=== PATIENT | male | born 1980 | race Caucasian/White ===

== ENCOUNTER 2020-05-28 19:16 | Emergency (ER) | payer BC ==
--- NOTE | 2020-05-28 19:34 | EDM.PDOC ---
ED HPI GENERAL MEDICAL PROBLEM - General Chief Complaint: Chest Pain Stated Complaint: CHEST/NECK PAIN Time Seen by Provider: 05/28/20 19:24 - History of Present Illness INITIAL COMMENTS - FREE TEXT/NARRATIVE: 39-year-old male presents the emergency room with chest pain. Patient had an episode of chest pain on Friday that was more severe than today it seemed to radiate up the right side of his anterior chest and into his neck and up the side of his neck. Patient has had problems like this in the past but usually on the left side. Today's episode was milder but he thought it needed to be checked out. Patient several years ago had similar episodes and was worked up in [place] for this however he never had a follow-up he had a stress test done at that point it was nonconclusive he said they found a condition that would only be problematic if he was an elderly black female. During that evaluation they mention something about possible sarcoidosis. The patient does smoke nearly half a pack of cigarettes a day. Family history noncontributory Chest Pain Score (Numeric/FACES): 5 - Related Data Allergies Allergy/AdvReac Type Severity Reaction Status Date / Time No Known Allergies Allergy Verified 05/28/20 19:26 Home Meds: Home Meds . [No Known Home Meds] 05/28/20 [History] ED ROS GENERAL - Review of Systems Review Of Systems: See Below Constitutional: Reports: No Symptoms HEENT: Reports: No Symptoms Respiratory: Reports: No Symptoms, Other (Unusual chest pain sure sounds muscle skeletal). Denies: Shortness of Breath Cardiovascular: Reports: No Symptoms GI/Abdominal: Reports: No Symptoms : Reports: No Symptoms Musculoskeletal: Reports: Neck Pain Neurological: Reports: No Symptoms Psychiatric: Reports: No Symptoms, Other (History of anxiety and depression but this does not seem to be bothering him at this point) ED EXAM, GENERAL - Physical Exam Exam: See Below Exam Limited By: No Limitations General Appearance: Alert, No Apparent Distress Head: Atraumatic, Normocephalic Neck: Other (Exam is for the most part unremarkable except for some tenderness that is mild along the right sternocleidomastoid the patient does state that this is where his pain usually is) Respiratory/Chest: No Respiratory Distress, Lungs Clear, Normal Breath Sounds Cardiovascular: Regular Rate, Rhythm, No Edema, No Murmur GI/Abdominal: Normal Bowel Sounds, Soft, Non-Tender EKG INTERPRETATION EKG Date: 05/28/20 Rhythm: NSR [place]: Normal P-Wave: Present QRS: Normal Comparison: NA - No Prior EKG Course - Vital Signs Last Recorded V/S: Last Vital Signs Temp 36.2 C 05/28/20 19:23 Pulse 69 05/28/20 20:15 Resp 18 05/28/20 20:15 BP 108/72 05/28/20 20:15 Pulse Ox 96 05/28/20 20:15 - Orders/Labs/Meds Orders: Active Orders 24 hr Category Date Time Status EKG 12 Lead [EKG Documentation Completion] [RC] STAT Care 05/28/20 19:48 Active Chest 1V Frontal [CR] Stat Exams 05/28/20 19:39 Taken Labs: Laboratory Tests 05/28/20 05/28/20 05/28/20 Range/Units 19:30 19:30 19:30 WBC 6.39 (4.23-9.07) K/mm3 RBC 4.76 (4.63-6.08) M/mm3 Hgb 14.8 (13.7-17.5) gm/dl Hct 43.2 (40.1-51.0) % MCV 90.8 (79.0-92.2) fl MCH 31.1 (25.7-32.2) pg MCHC 34.3 (32.2-35.5) g/dl RDW Std Deviation 39.8 (35.1-43.9) fL Plt Count 244 (163-337) K/mm3 MPV 10.2 (9.4-12.3) fl Neut % (Auto) 65.1 (34.0-67.9) % Lymph % (Auto) 23.0 (21.8-53.1) % [place] % (Auto) 10.5 (5.3-12.2) % Eos % (Auto) 0.9 (0.8-7.0) Baso % (Auto) 0.3 (0.1-1.2) % Neut # (Auto) 4.16 (1.78-5.38) K/mm3 Lymph # (Auto) 1.47 (1.32-3.57) K/mm3 [place] # (Auto) 0.67 (0.30-0.82) K/mm3 Eos # (Auto) 0.06 (0.04-0.54) K/mm3 Baso # (Auto) 0.02 (0.01-0.08) K/mm3 D-Dimer, Quantitative < 0.19 L (0.19-0.50) mg/L Sodium 141 (136-145) mEq/L Potassium 3.6 (3.5-5.1) mEq/L Chloride 104 (98-107) mEq/L Carbon Dioxide 29 (21-32) mEq/L Anion Gap 11.6 (5-15) BUN 12 (7-18) mg/dL Creatinine 1.2 (0.7-1.3) mg/dL Est Cr Clr Drug Dosing 93.40 mL/min Estimated GFR (MDRD) > 60 (>60) mL/min BUN/Creatinine Ratio 10.0 L (14-18) Glucose 100 (74-106) mg/dL Calcium 8.5 (8.5-10.1) mg/dL Total Bilirubin 0.2 (0.2-1.0) mg/dL AST 14 L (15-37) U/L ALT 26 (16-63) U/L Alkaline Phosphatase 58 (46-116) U/L Troponin I < 0.017 (0.00-0.056) ng/mL Total Protein 7.3 (6.4-8.2) g/dl Albumin 3.8 (3.4-5.0) g/dl Globulin 3.5 gm/dL Albumin/Globulin Ratio 1.1 (1-2) - Re-Assessments/Exams Free Text/Narrative Re-Assessment/Exam: 05/28/20 22:31 EKG is unremarkable no evidence of ischemia pretty normal looking EKG troponin is negative d-dimer is negative remaining labs are unremarkable chest x-ray shows no acute cardiopulmonary changes. Discussion with the patient and his really have no identifiable cause the patient now volunteers that deep breaths do tend to cause this discomfort in the right sternocleidomastoid. The patient really would like an answer and I do not have a solid answer for what is causing this I think there is a muscle skeletal component. However cannot exclude some more ominous I recommended the patient follow-up with his primary and discuss getting a cardiac stress test done but the patient would like to see a heart doctor I told him he is certainly welcome to do so at this point I recommended the patient start baby aspirin daily enteric-coated start famotidine 20 mg twice daily and start Aleve 1 or 2 twice daily with the morning and evening meals Departure - Departure Time of Disposition: 22:33 Disposition: Home, Self-Care 01 Clinical Impression: Chest pain, Strain of sternocleidomastoid muscle Referrals: Lesly Elizabeth, [employer] [Primary Care Provider] - Forms: ED Department Discharge Additional Instructions: Return to the emergency room with any questions problems or worsening symptoms. Follow-up with your regular provider and discuss further work-up possibly including a cardiac stress test cardiology referral. Try Pepcid, or famotidine, 20 mg twice daily. Start Naprosyn, or of the [id number] Aleve 2 twice daily with meals. Sepsis Event Note (ED) - Focused Exam Vital Signs: Vital Signs Temp Pulse Resp BP Pulse Ox 05/28/20 20:15 69 18 108/72 96 05/28/20 19:23 36.2 C 80 16 126/91 H 97 - My Orders Last 24 Hours: My Active Orders 05/28/20 19:39 Chest 1V Frontal [CR] Stat 05/28/20 19:48 EKG 12 Lead [EKG Documentation Completion] [RC] STAT - Assessment/Plan Last 24 Hours: My Active Orders 05/28/20 19:39 Chest 1V Frontal [CR] Stat 05/28/20 19:48 EKG 12 Lead [EKG Documentation Completion] [RC] STAT
--- NOTE | 2020-05-29 11:45 | CR ---
Chest: Portable view of the chest was obtained. Comparison: No prior chest imaging is available. Findings: Heart size and mediastinum are normal. Lungs are clear with no acute parenchymal change. Bony structures are grossly intact. Impression: 1. Nothing acute is appreciated on portable chest x-ray. Diagnostic code #1 This report was dictated in [facility]
== END 2020-05-28 22:30 | disposition home or self-care (01) ==
LOC: JD.ED 19:16
DX: S29.011A Strain of muscle and tendon of front wall of thorax, initial encounter (principal); F17.210 Nicotine dependence, cigarettes, uncomplicated; X58.XXXA Exposure to other specified factors, initial encounter
CPT/HCPCS: 36415; 71045; 71045-26; 80053; 84484; 85025; 85379; 93005; 93010; 99283; 99285-25